=== PATIENT | female | born 1985 ===

== ENCOUNTER 2016-04-29 20:10 | Inpatient (IN) | payer OTHER ==
[2016-04-29] MEDS ORDERED: ceFOXitin 2 GM IVPREMIX* 2 GM/50 ML BAG IVPB ONE (20:53)
[2016-04-29] MEDS ORDERED: ceFOXitin 2 GM IVPREMIX* 2 GM/50 ML BAG ONE (20:58)
[2016-04-29] MEDS ORDERED: Sodium Citrate/Citric Acid* 15 ML UDC ONE (21:10)
[2016-04-29] MEDS ORDERED: Morphine PF AMP (0.5MG/ML)* 5 MG/10 ML AMP ONE (21:21)
[2016-04-29] MEDS ORDERED: OXYTOCIN* 10 UNITS/ML 1 ML VIAL ONE (21:22)
[2016-04-29] MEDS ORDERED: Bupivacaine 0.5% SDV PF* 30 ML VIAL ONE (21:23)
[2016-04-29 21:39] LABS: Hematocrit 37 % (35-47); Hemoglobin 12.1 g/dl (12.0-16.0); Mean Corpuscular HGB Conc 33 g/dl (31-36); Mean Corpuscular Hemoglobin 26 pg (27-31); Mean Corpuscular Volume 79 fL (80-97); Mean Platelet Volume 9 um3 (7.4-10.4); Red Blood Count 4.67 10^6/ul (4.0-5.4); Red Cell Distribution Width 15 % (10.5-15); White Blood Count 8.4 10^3/ul (3.5-10.8)
[2016-04-29] MEDS ORDERED: EPHEDrine (Pressors)* 50 MG/ML VIAL ONE (21:44)
[2016-04-29] MEDS ORDERED: Phenylephrine IV* 40 MCG/ML 10 ML SYRINGE ONE (21:45)
[2016-04-29] MEDS ORDERED: Sodium Citrate/Citric Acid* 15 ML UDC PO ONE (22:04)
[2016-04-29] MEDS ORDERED: Buffered Lidocaine 1% SYR 3ML* 3 ML/SYR SYRINGE INTRADERM ONE (22:04)
[2016-04-29] MEDS ORDERED: Ondansetron INJ* 2 MG/ML VIAL IV PRN ×2 (22:05→22:06)
[2016-04-29] MEDS ORDERED: Scopolamine 1.5 mg* PATCH TRANSDERM PRN (22:05)
[2016-04-29] MEDS ORDERED: fentaNYL* 50 MCG/ML 2 ML VIAL (100 MCG VIAL) IV PRN (22:05)
[2016-04-29] MEDS ORDERED: oxyCODONE/Acetamin 5/325 MG* TAB PO PRN ×2 (22:06)
[2016-04-29] MEDS ORDERED: diPHENhydraMINE IV* 50 MG/ML 1 ml VIAL (BENADRYL) IV PRN (22:06)
[2016-04-29] MEDS ORDERED: Naloxone* 0.4 MG/ML 1 ML VIAL IV PRN (22:06)
[2016-04-29] MEDS ORDERED: PROCHLORPERAZINE INJ 5 MG/ML 2 ML VIAL IV PRN (22:06)
[2016-04-29] MEDS ORDERED: Ketorolac INJ* 30 MG/ML 1 ML VIAL ONE (22:20)
[2016-04-29] MEDS ORDERED: Witch Hazel PAD* JAR TOPICAL PRN (22:45)
[2016-04-29] MEDS ORDERED: Acetaminophen TAB* 325 MG PO PRN (22:45)
[2016-04-29] MEDS ORDERED: Dibucaine 1% 28.35 GM TUBE PR PRN (22:45)
[2016-04-29] MEDS ORDERED: Zolpidem TAB* 5 MG PO PRN (22:45)
[2016-04-29] MEDS ORDERED: Glycerin ADULT SUPP PR PRN (22:45)
[2016-04-29] MEDS ORDERED: Scopolamine PATCH Remove* 1 NOTE MISC PATCH OFF SCH (23:00)
[2016-04-29] MEDS ORDERED: Scopolamine 1.5 mg* PATCH TRANSDERM SCH (23:00)
[2016-04-29] MEDS: Nalbuphine* 20 MG/ML 1 ML VIAL IV PRN (23:15)
[2016-04-30] MEDS: Nalbuphine* 20 MG/ML 1 ML VIAL IV PRN (03:52)
[2016-04-30] MEDS: Acetaminophen TAB* 325 MG PO SCH ×4 (03:54→12:36)
[2016-04-30] MEDS: Ketorolac INJ* 30 MG/ML 1 ML VIAL IV SCH ×5 (05:23→18:29)
[2016-04-30] MEDS: Simethicone TAB* 80 MG TAB.CHEW PO SCH ×4 (08:11→21:06)
[2016-04-30] MEDS: Docusate CAP* 100 MG PO SCH ×3 (08:11→21:06)
[2016-04-30 08:14] LABS: Hematocrit 30 % (35-47); Hemoglobin 9.9 g/dl (12.0-16.0); Mean Corpuscular HGB Conc 34 g/dl (31-36); Mean Corpuscular Hemoglobin 27 pg (27-31); Mean Corpuscular Volume 80 fL (80-97); Mean Platelet Volume 8 um3 (7.4-10.4); Red Cell Distribution Width 15 % (10.5-15); White Blood Count 9.7 10^3/ul (3.5-10.8)
[2016-04-30] MEDS: Ferrous Gluconate TAB* 324 MG TAB PO SCH ×2 (08:31→21:06)
[2016-04-30] MEDS ORDERED: Acetaminophen TAB* 325 MG PO PRN (14:30)
--- NOTE | 2016-04-30 14:38 | PTEDU ---
Patient Name: KRISTIN CONTI KRISTIN CONTI selected video: Never Ever Shake a Baby to view on 04/30/2016 at 2:37:43 PM [id number]
[2016-04-30] MEDS: oxyCODONE/Acetamin 5/325 MG* TAB PO PRN (18:30)
[2016-04-30] MEDS: Ibuprofen TAB* 600 MG PO PRN (21:41)
--- NOTE | 2016-04-30 23:41 | OP ---
OPERATIVE REPORT: DATE OF OPERATION: 04/29/16 - MCHOB 103-01 TIME OF SURGERY: 10 p.m. DATE OF : 89 SURGEON: Jose Elder MD FLORAL MERCHANDISER: Lynn Abrams CNM ANESTHESIOLOGIST: Chase Gaona MD ANESTHESIA: Spinal. PRE-OP DIAGNOSIS: Term at 38 weeks with a prior section and labor. POST-OP DIAGNOSIS: Term at 38 weeks with a prior section and labor. OPERATIVE PROCEDURE: Repeat low-transverse section. ESTIMATED BLOOD LOSS: 600 cc. URINE OUTPUT: Clear. FLUIDS: She received 2700 cc of IV crystalloid fluid. FINDINGS: Delivery of a viable female infant with a weight of 7 pounds 5 ounces and Apgars of 9 and 9 with clear fluid. The placenta was within normal limits with a three-vessel cord noted. The uterus, adnexa, bowel, and bladder were all within normal limits and there were no complications. DESCRIPTION OF PROCEDURE: The patient was taken to the operating room where she was identified. She was placed on the operating room table where a spinal anesthetic was obtained without difficulty. She was then placed in a supine position with a leftward tilt, prepped and draped in a normal sterile fashion. A Pfannenstiel skin incision was made with a knife and carried through to the underlying layer of fascia. The facia was nicked in the midline and extended laterally with curved Wong scissors. The fascia was then grasped superiorly and inferiorly with Gm clamps and dissected off sharply from the rectus muscle. The rectus muscle was in the midline bluntly. The peritoneum was identified, grasped with pickups, and entered sharpy with Metzenbaum scissors. The peritoneum was then extended inferiorly and superiorly sharply. A bladder blade was inserted in the patient's abdomen. A bladder flap was created over which the bladder blade was then reinserted. A low transverse uterine incision was made with a knife, extended laterally with bandage scissors. The amniotic sac was ruptured, the fluid noted to be clear. The infant's head was then grasped. A vacuum was then applied to the infant's head and the 's head was delivered atraumatically. The nose and mouth were suctioned at the incision site. The rest of the 's body was then delivered. The cord was clamped and cut and the infant was handed off to awaiting ccna. Cord bloods were obtained. The placenta was removed manually. The uterus was then exteriorized and cleared of all clot and debris using moist laparotomy sponges. The uterine incision was then closed using 0 Polysorb suture in a running locked fashion with a second imbricating layer of 0 Polysorb suture. The uterus was then returned to the patient's abdomen. The gutters were then cleared of all clots and debris using moist laparotomy sponges and irrigation fluid, which . Sponges were removed from the patient's abdomen. The peritoneum was then closed using 3-0 Polysorb suture in a running fashion. The fascia was closed using 0 Polysorb suture in a running fashion and the skin was closed with 4-0 Monocryl subcuticular stitch. The patient tolerated the procedure well. Sponge, lap, and needle counts were correct x2. She was then transferred to the recovery room area in stable condition. [id number]/[facility] #: [id number] ELISABETH
[2016-05-01] MEDS: oxyCODONE/Acetamin 5/325 MG* TAB PO PRN ×4 (00:59→23:17)
--- NOTE | 2016-05-01 07:54 | PTEDU ---
Patient Name: KRISTIN CONTI KRISTIN CONTI selected video: Never Ever Shake a Baby to view on 05/01/2016 at 7:53:37 AM [id number]
[2016-05-01] MEDS: Docusate CAP* 100 MG PO SCH ×3 (08:41→19:45)
[2016-05-01] MEDS: Simethicone TAB* 80 MG TAB.CHEW PO SCH ×4 (08:41→19:45)
[2016-05-01] MEDS: Ferrous Gluconate TAB* 324 MG TAB PO SCH ×2 (08:41→19:45)
[2016-05-01] MEDS: Ibuprofen TAB* 600 MG PO PRN ×3 (08:41→23:17)
[2016-05-02] MEDS: oxyCODONE/Acetamin 5/325 MG* TAB PO PRN ×2 (03:52→08:24)
[2016-05-02] MEDS: Ferrous Gluconate TAB* 324 MG TAB PO SCH (08:24)
[2016-05-02] MEDS: Simethicone TAB* 80 MG TAB.CHEW PO SCH ×2 (08:25→12:41)
[2016-05-02] MEDS: Docusate CAP* 100 MG PO SCH (08:25)
[2016-05-02] MEDS ORDERED: Varicella Virus Vaccine Live* 0.5 ML VIAL SUBCUT ONE (09:24)
[2016-05-02 11:52] VITALS: BP 118/66
[2016-05-02] MEDS: Ibuprofen TAB* 600 MG PO PRN (12:41)
[2016-05-02] MEDS ORDERED: Scopolamine PATCH Remove* 1 NOTE MISC PATCH OFF ONE (22:06)
== END 2016-05-02 13:01 | disposition home or self-care (01) | DRG 540 ==
LOC: MCHOBOUT 20:10 → EDBD 20:37 → MCHOB 20:37
PROVIDERS: ADMIT Obstetrics & Gynecology; ATTEND Obstetrics & Gynecology
PROC: 10D00Z1 Extraction of Products of Conception, Low, Open Approach (ICD-10-PCS; principal; 2016-04-29 21:26)
DX: O34.211 Maternal care for low transverse scar from previous cesarean delivery (principal); D64.9 Anemia, unspecified; O90.81 Anemia of the puerperium; Z3A.38 38 weeks gestation of pregnancy; Z37.0 Single live birth
CPT/HCPCS: 36415; 85025; 86850; 86900; 86901; A9270-GY; J0694; J1200; J1885; J2300; J2590